=== PATIENT | female | born 1930 | race Caucasian/White ===

== ENCOUNTER 2017-06-13 12:23 | Outpatient (CLI) | payer MEDICARE ==
--- NOTE | 2017-06-13 13:32 | MMO ---
BILATERAL DIGITAL SCREENING MAMMOGRAMS: Date: 06/13/17 HISTORY: 87-year-old female who is 18 years status post left mastectomy for breast cancer. COMPARISON: 05/21/16, 05/18/15, 05/12/14, 05/13/12. FINDINGS: This patient's mammogram was interpreted with the assistance of computer-aided detection. Stable typically benign calcifications in the right breast. Stable oval mass in the upper aspect of the right breast. No direct or indirect evidence of malignancy. IMPRESSION: BIRADS 2: Benign Finding(s) Continue routine screening. POS: [facility]
== END 2017-06-13 12:24 | disposition home or self-care (01) ==
LOC: MAMMO 12:23
PROVIDERS: ATTEND Internal Medicine Hematology & Oncology
DX: Z12.31 Encounter for screening mammogram for malignant neoplasm of breast (principal)
CPT/HCPCS: 77067; G0202

== ENCOUNTER 2017-07-25 08:00 | Outpatient (CLI) | payer MEDICARE | END 2017-07-25 08:01 | disposition home or self-care (01) | LOC: BICMAMMO 08:00 | PROVIDERS: ATTEND Internal Medicine Hematology & Oncology | DX: Z13.820 Encounter for screening for osteoporosis (principal); Z78.0 Asymptomatic menopausal state; M85.80 Other specified disorders of bone density and structure, unspecified site | CPT/HCPCS: 77080 ==

== ENCOUNTER 2018-06-16 08:38 | Outpatient (CLI) | payer MEDICARE | END 2018-06-16 08:39 | disposition home or self-care (01) | LOC: BICMAMMO 08:38 | PROVIDERS: ATTEND Internal Medicine Hematology & Oncology | DX: Z12.31 Encounter for screening mammogram for malignant neoplasm of breast (principal); Z85.3 Personal history of malignant neoplasm of breast | CPT/HCPCS: 77063; 77067 ==

== ENCOUNTER 2018-08-05 13:12 | Outpatient (CLI) | payer MEDICARE ==
--- NOTE | 2018-08-05 15:23 | BD ---
Exam: DEXA Bone Density 08/05/18 HISTORY: Osteoporosis screening. FINDINGS: Lumbar Spine: BMD (g/cm2) T-Score Z-Score L1 1.155 1.5 Unavailable L2 1.129 0.9 Unavailable L3 1.239 1.4 Unavailable L4 1.474 3.8 Unavailable L1-L4 1.256 1.9 Unavailable The bone mineral density of the composite L1 through L4 region has declined 4% from the previous date d 05/18/15. Left Femoral Neck: 0.656 -1.7 Unavailable Total Femur: 0.764 -1.5 Unavailable The bone mineral density has declined 1.5% from the previous dated 05/18/15. The FRAX WHO fracture risk assessment tool estimated 10 year fracture risk for this patient for major osteoporotic fracture is 17% and for hip fracture as 4.8%. Impression: Based on WHO criteria, the patient's bone mineral density is osteopenia. The patient is at moderate r isk for fracture. The bone mineral density has declined 1.5% from the baseline dated 05/18/15. The bone mineral density has improved slightly 0.8% from the initial examination dated 09/29/01; [facility], this involved dissimilar scan types and analysis methods and is likely statistically insignifican t. POS: [facility]
== END 2018-08-05 13:13 | disposition home or self-care (01) ==
LOC: BICMAMMO 13:12
PROVIDERS: ATTEND Internal Medicine Hematology & Oncology
DX: Z13.820 Encounter for screening for osteoporosis (principal); M81.0 Age-related osteoporosis without current pathological fracture; C50.919 Malignant neoplasm of unspecified site of unspecified female breast; M85.852 Other specified disorders of bone density and structure, left thigh
CPT/HCPCS: 77080